=== PATIENT | female | born 1945 | race Caucasian/White ===

== ENCOUNTER 2017-05-26 23:23 | Emergency (ER) | payer MEDICARE, OTHER ==
[~2017-05-26] VITALS: Ht 162.6 cm; Wt 77.8 kg
[~2017-05-26 23:23] MED LIST: ALPHAGAN OP; ATENOLOL25 MG PO; ATORVASTATIN; CIPRO 250MG TA250 MG PO; FLOMAX 0.40.4 MG/CAP PO; HCTZ 25MG25 MG PO; LIPITOR 10MG10 MG PO; PERCOCET 5/321 UDTAB PO; PHENERGAN 25 TA25 MG PO; PHENERGAN25 MG RC; TENORETIC PO; XALATAN OPTH; glaucoma gtts
[2017-05-26 23:29] VITALS: TEMP 98.1
[2017-05-27] MEDS ORDERED: TENORMIN 5050 MG/TAB PO
[2017-05-27] MEDS ORDERED: HCTZ 25MG TAB25 MG PO (00:01)
[2017-05-27] MEDS ORDERED: SIMBRINZA 0.2%-18 ML OP (00:01)
[2017-05-27] MEDS ORDERED: ZOCOR 20MG20 MG PO (00:01)
[2017-05-27 00:13] LABS: PH 5 (5-8); SQUAMOUS EPITHELIAL 0-2 /hpf; URINE APPEARANCE Hazy; URINE BACTERIA None Seen /hpf; URINE BILIRUBIN Negative (NEGATIVE); URINE BLOOD 3+ (NEGATIVE); URINE COLOR Yellow; URINE GLUCOSE Negative (NEGATIVE); URINE KETONE Negative (NEGATIVE); URINE RBC >50 /hpf; URINE UROBILINOGEN Negative (NEGATIVE)
[2017-05-27] MEDS ORDERED: PYRIDIUM200 M1 PO (00:21)
[2017-05-27] MEDS ORDERED: CEFTIN 250250 MG/TAB PO (00:21)
[2017-05-27 00:37] VITALS: BP 166/74; PULSE 73
== END 2017-05-27 00:42 | disposition home or self-care (01) ==
LOC: COL.ER 23:23
PROVIDERS: Emergency Medicine
DX: N39.0 Urinary tract infection, site not specified (principal); E78.5 Hyperlipidemia, unspecified; I10 Essential (primary) hypertension; Z87.442 Personal history of urinary calculi

== ENCOUNTER 2018-01-28 14:48 | Observation (INO) | payer MEDICARE, OTHER ==
[~2018-01-28] VITALS: Ht 165.1 cm; Wt 84.0 kg
[~2018-01-28 14:48] MED LIST changes: +CEFTIN 250250 MG/TAB PO; +HCTZ 25MG TAB25 MG PO; +PYRIDIUM200 M1 PO; +SIMBRINZA 0.2%-18 ML OU; +TENORMIN 5050 MG/TAB PO; +ZOCOR 20MG20 MG PO
[2018-01-28 15:46] LABS: COLLECTION METHOD CLEAN CATCH
[2018-01-28 15:51] LABS: BASO % 0.4 % (0.0-2.0); EOS # 0.2 (0.0-0.7); EOS % 1.4 % (0-4.0); GRAN # 7.7 (1.4-6.5); GRAN % 73.2 % (42.2-75.2); HEMATOCRIT 44.1 % (37.0-47.0); HEMOGLOBIN 14.7 g/dl (12.5-16.0); LYMPH # 1.9 (1.2-3.4); LYMPH % 17.7 % (20.0-51.0); MEAN CELL VOLUME 96 fl (80.0-100.0); MEAN CORPUSCULAR HEMOGLOBIN 32 pg (27.0-31.0); MEAN CORPUSCULAR HGB CONC 33 g/dl (33.0-37.0); MEAN PLATELET VOLUME 9.9 fl (7.4-10.4); MONO # 0.7 (0.1-0.6); MONO % 6.9 % (1.7-9.3); PLATELET COUNT 249 K/mm3 (130-400); RED BLOOD COUNT 4.59 M/mm3 (4.10-5.30); REDCELL DISTRIBUTION WIDTH-CV 11.9 % (11.5-14.5)
[2018-01-28 15:58] LABS: BUDDING YEAST Present /hpf; MUCOUS Present /lpf; PH 5 (5-8); SQUAMOUS EPITHELIAL 0-2 /hpf; URINE APPEARANCE Cloudy; URINE BACTERIA None Seen /hpf; URINE BILIRUBIN Negative (NEGATIVE); URINE BLOOD 3+ (NEGATIVE); URINE CALCIUM OXALATE CRYSTAL Present /hpf; URINE COLOR Amber; URINE GLUCOSE Negative (NEGATIVE); URINE KETONE Trace (NEGATIVE); URINE LEUKOCYTE ESTERASE Negative (NEGATIVE); URINE NITRATE Negative (NEGATIVE); URINE PROTEIN(semi-quant) 2+ (NEGATIVE); URINE RBC >50 /hpf; URINE UROBILINOGEN Negative (NEGATIVE)
[2018-01-28 16:02] LABS: BILIRUBIN,TOTAL 0.9 mg/dL (0.0-1.0); C-REACTIVE PROTEIN 0.7 mg/dL (0.0-0.9); CALCIUM 9.5 mg/dL (8.4-10.2); CREATININE, serum 1.05 mg/dL (0.52-1.25); POTASSIUM 3.7 mmol/L (3.4-5.0)
[2018-01-28 16:10] LABS: TROPONIN-I 0.012 ng/mL (0.000-0.034)
[2018-01-28 17:28] VITALS: BP 165/68; PULSE 86; TEMP 98.1
[2018-01-28 19:59] VITALS: BP 160/77; PULSE 88; TEMP 97.7
[2018-01-29] VITALS (11 sets, daily range): BP systolic 104–150; BP diastolic 58–89; PULSE 61–86; TEMP 97.3–98.8
== END 2018-01-29 17:49 | disposition home or self-care (01) ==
LOC: COL.ER 14:48 → SURG 16:27
PROVIDERS: Emergency Medicine
DX: N20.1 Calculus of ureter (principal); I10 Essential (primary) hypertension; E78.00 Pure hypercholesterolemia, unspecified
CPT/HCPCS: C1769; G0378; J0690; J0696; J1100; J1885; J1940; J2270; J2405; J2704; J3010; J7030; J7120; Q9967

== ENCOUNTER 2020-06-06 18:04 | Inpatient (IN) | payer MEDICARE, OTHER ==
[~2020-06-06] VITALS: Ht 162.6 cm; Wt 80.0 kg
[~2020-06-06 18:04] MED LIST changes: -ELIQUIS 5MG PO
[2020-06-06 19:11] VITALS: BP 142/57; PULSE 73; TEMP 98.3
--- NOTE | 2020-06-06 19:16 | NUR ---
PT ARRIVED VIA EMS. ASSESSMENT COMPLETED. PT CHANGED INTO PERSONAL HOSPITAL GOWN, AND NO COMPLAINTS OF PAIN OR DISCOMFORT. REPORT GIVEN TO NIGHT STERLING
--- NOTE | 2020-06-06 19:45 | NUR ---
Pt. sitting up in bed at this time. Pt. is A&OX3, assessment complete. INT to lt hand patent. Pt. denies pain or other needs, call light within reach.
[2020-06-06 20:03] LABS: BASO % 0.3 % (0.0-2.0); EOS # 0.1 (0.0-0.7); EOS % 0.7 % (0-4.0); GRAN # 8.2 (1.4-6.5); HEMATOCRIT 43.4 % (37.0-47.0); HEMOGLOBIN 14.5 g/dl (12.5-16.0); LYMPH # 1.5 (1.2-3.4); LYMPH % 14.5 % (20.0-51.0); MEAN CELL VOLUME 94 fl (80.0-100.0); MEAN CORPUSCULAR HEMOGLOBIN 32 pg (27.0-31.0); MEAN CORPUSCULAR HGB CONC 33 g/dl (33.0-37.0); MEAN PLATELET VOLUME 10.6 fl (7.4-10.4); MONO # 0.7 (0.1-0.6); MONO % 6.9 % (1.7-9.3); PLATELET COUNT 250 K/mm3 (130-400); REDCELL DISTRIBUTION WIDTH-CV 11.9 % (11.5-14.5)
[2020-06-06 20:07] LABS: INR 1.1 (0.8-3.0); PROTHROMBIN TIME 12.5 SECONDS (9.7-12.8)
[2020-06-06 20:15] LABS: ALBUMIN 4.1 gm/dL (3.5-5.0); BILIRUBIN,TOTAL 0.7 mg/dL (0.0-1.0); CREATININE, serum 1.04 (0.52-1.25); POTASSIUM 3.9 mmol/L (3.4-5.0); TOTAL PROTEIN 7.7 gm/dL (6.4-8.2)
[2020-06-06 20:26] LABS: CALCIUM 9.4 mg/dL (8.4-10.2)
[2020-06-06 23:30] VITALS: BP 153/68; PULSE 68; TEMP 98.4
[2020-06-07 03:14] VITALS: BP 136/92; PULSE 78; TEMP 99.1
[2020-06-07 08:25] VITALS: BP 109/79; PULSE 83; TEMP 98.2
[2020-06-07 09:10] LABS: BASO % 0.5 % (0.0-2.0); EOS # 0.1 (0.0-0.7); EOS % 0.9 % (0-4.0); GRAN # 5.9 (1.4-6.5); GRAN % 69.4 % (42.2-75.2); HEMATOCRIT 42.2 % (37.0-47.0); HEMOGLOBIN 14.3 g/dl (12.5-16.0); LYMPH # 1.7 (1.2-3.4); LYMPH % 20.2 % (20.0-51.0); MEAN CELL VOLUME 95 fl (80.0-100.0); MEAN CORPUSCULAR HEMOGLOBIN 32 pg (27.0-31.0); MEAN CORPUSCULAR HGB CONC 34 g/dl (33.0-37.0); MEAN PLATELET VOLUME 10.7 fl (7.4-10.4); MONO # 0.7 (0.1-0.6); MONO % 8.6 % (1.7-9.3); PLATELET COUNT 223 K/mm3 (130-400); RED BLOOD COUNT 4.44 M/mm3 (4.10-5.30); REDCELL DISTRIBUTION WIDTH-CV 11.8 % (11.5-14.5)
[2020-06-07 09:24] LABS: CALCIUM 9.1 mg/dL (8.4-10.2); CREATININE, serum 0.91 (0.52-1.25); MAGNESIUM 1.8 mg/dL (1.6-2.3); POTASSIUM 3.5 mmol/L (3.4-5.0)
[2020-06-07] MEDS ORDERED: ELIQUIS 5MG PO (11:53)
--- NOTE | 2020-06-07 12:20 | NUR ---
First visit from the ukrainian folk arts instructor. No needs right now.
[2020-06-07 13:12] VITALS: BP 132/53; PULSE 62; TEMP 98.4
--- NOTE | 2020-06-07 17:01 | NUR ---
Tire Worker met with patient about discharge planning. Patient lives in [place], [place] with her , Solo (ph#[phone]) who is at bedside. Patient sees Dr. Rocha for primary care and obtains medications from [facility] pharmacy in [place] with no difficulties. Patient does not use any DME and is independent with ADLS. Patient requires 2 liters of oxygen with ambulation. SW faxed referral to [place] [facility] and oxygen was delivered up to patient's room. No additional needs at this time.
== END 2020-06-07 16:50 | disposition home or self-care (01) | DRG 176 ==
LOC: MEDICAL 18:04
PROVIDERS: Physician Assistant; ADMIT Hospitalist
DX: I26.92 Saddle embolus of pulmonary artery without acute cor pulmonale (principal); I10 Essential (primary) hypertension; E78.5 Hyperlipidemia, unspecified; Z66 Do not resuscitate; H40.89 Other specified glaucoma; Z98.51 Tubal ligation status
CPT/HCPCS: 99222-AI; 99239; J1650

== ENCOUNTER → 2020-06-06 | Outpatient (CLI) | payer MEDICARE, OTHER ==
[~2020-06-06] MED LIST changes: +ELIQUIS 5MG PO
== END ==
LOC: COL.RAD 13:09
DX: I26.92 Saddle embolus of pulmonary artery without acute cor pulmonale (principal)
CPT/HCPCS: Q9967

== ENCOUNTER → 2020-06-18 | Outpatient (CLI) | payer MEDICARE, OTHER ==
[~2020-06-18] MED LIST changes: +ELIQUIS 5MG PO
== END ==
LOC: MC.RAD 11:15
DX: Z12.31 Encounter for screening mammogram for malignant neoplasm of breast (principal)